=== PATIENT | female | born 1995 | race Caucasian/White ===

== ENCOUNTER 2019-06-01 20:18 | Emergency (ER) | payer MEDICAID, OTHER ==
[~2019-06-01] VITALS: Ht 165.1 cm; Wt 88.5 kg
[~2019-06-01 20:18] MED LIST: [UNRECOGNIZED DRUG - OTHER] PO
[2019-06-01 20:31] VITALS: BP_SYST 151
--- NOTE | 2019-06-02 00:10 | NUR ---
Patient to ER chair to gown for evaluation. Side rails up. Report given to Shea MARTIN.
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
--- NOTE | 2019-06-02 00:28 | NUR ---
ER Dr. Miles at bedside examining patient.
[2019-06-02] MEDS ORDERED: BACITRACIN 1 GM OINT TP ONE (00:45)
[2019-06-02 00:50] VITALS: BP_SYST 142
--- NOTE | 2019-06-02 00:50 | NUR ---
dPatient given written and verbal discharge instructions and verbalizes understanding. ER MD discussed with patient the results and treatment provided. Patient in stable condition. ID arm band removed. Rx of Bactroban ointment 2% and Keflex given. Patient educated on pain management and to follow up with PMD. Pain Scale 0. Opportunity for questions provided and answered. Medication side effect fact sheet provided.
== END 2019-06-02 00:50 | disposition home or self-care (01) ==
LOC: SED 20:18
DX: S71.151A Open bite, right thigh, initial encounter (principal); S51.851A Open bite of right forearm, initial encounter; W50.3XXA Accidental bite by another person, initial encounter; Y93.89 Activity, other specified; Y92.89 Other specified places as the place of occurrence of the external cause; Y99.8 Other external cause status
CPT/HCPCS: 99283